=== PATIENT | female | born 1990 | race African-American/Black ===

== ENCOUNTER 2017-07-07 22:15 | Emergency (ER) | payer SELFPAY ==
[2017-07-07 23:31] LABS: ABSOLUTE BASOPHILS # (AUTO) 0.2 10^3/uL (0.0-0.2); ABSOLUTE EOSINOPHILS # (AUTO) 0.1 10^3/uL (0.0-0.6); ABSOLUTE LYMPHOCYTES (AUTO) 4.2 10^3/uL (0.5-4.7); ABSOLUTE MONOCYTES (AUTO) 0.6 10^3/uL (0.1-1.4); ABSOLUTE NEUT (AUTO) 6.7 10^3/uL (1.7-8.2); BASOPHILS % (AUTO) 1.4 % (0-2); EOSINOPHILS % (AUTO) 0.9 % (0-6); HEMATOCRIT 36.5 % (36.0-47.0); HEMOGLOBIN 12.4 g/dL (12.0-15.5); HGB HCT DIFFERENCE 0.7; LYMPHOCYTES % (AUTO) 35.8 % (13-45); MEAN CORPUSCULAR HEMOGLOBIN 30.3 pg (27.0-33.4); MEAN CORPUSCULAR HGB CONC 34.1 g/dL (32.0-36.0); MEAN CORPUSCULAR VOLUME 89 fl (80-97); MONOCYTES % (AUTO) 5.2 % (3-13); RED BLOOD COUNT 4.11 10^6/uL (3.72-5.28); RED CELL DISTRIBUTION WIDTH 13.4 % (11.5-14.0); SEGMENTED NEUTROPHILS % (AUTO) 56.7 % (42-78); WHITE BLOOD COUNT 11.8 10^3/uL (4.0-10.5)
[2017-07-07] MEDS ORDERED: ACETAMINOPHEN 325 MG TABLET PO ONE (23:33)
[2017-07-07 23:52] LABS: APPEARANCE,URINE TURBID; BILIRUBIN,URINE NEGATIVE (NEGATIVE); GLUCOSE, URINE 50 mg/dL (NEGATIVE); KETONES,URINE 20 mg/dL (NEGATIVE); LEUKOCYTE ESTERASE,URINE NEGATIVE (NEGATIVE); NITRITE,URINE POSITIVE (NEGATIVE); PROTEIN,URINE >=500 mg/dL (NEGATIVE); URINE SPECIFIC GRAVITY 1.032; UROBILINOGEN,URINE NEGATIVE mg/dL (<2.0)
--- NOTE | 2017-07-08 00:47 | ER Document Report ---
ED GI/ - General Mode of Arrival: Ambulatory Information source: Patient TRAVEL OUTSIDE OF THE [place] IN LAST 30 DAYS: No - HPI Patient complains to provider of: , Vaginal bleeding Onset: Other - Refer to HPI notes (06/29/2017) Similar symptoms previously: Yes Recently seen / treated by doctor: No <ELEUTERIO WRAY - Last Filed: 07/08/17 00:57> <KARLA MEREDITH - Last Filed: 07/08/17 03:55> - General Chief Complaint: Vag Bleeding, +preg <12wks Stated Complaint: VAGINAL BLEEDING Time Seen by Provider: 07/08/17 00:41 - HPI Notes: Patient is a 26 year old female presenting to the emergency department for vaginal bleeding. Patient states her bleeding started on 06/29/2017. Patient's bleeding has gotten heavier and she is now passing clots with large pieces. Patient states on 06/29/2017 she took a test that was positive. Patient states her last normal menstrual period was in April. Patient is having lots of associated cramping. Patient is going through 1 pad every 30-60 minutes and passing clots when she uses the restroom or bares down. Patient does not have any known drug allergies. PCP is Dr. Alvarado at [facility]. (ELEUTERIO WRAY) - Related Data Allergies/Adverse Reactions: No Known Allergies Allergy (Verified 07/07/17 22:50) Past Medical History - General Information source: Patient - Social History Smoking Status: Current Every Day Smoker Cigarette use (# per day): Yes - 1/3 ppd Chew tobacco use (# tins/day): No Frequency of alcohol use: None Drug Abuse: None Family History: None Patient has suicidal ideation: No Patient has homicidal ideation: No Pulmonary Medical History: Reports: Hx Asthma Surgical Hx: Negative - Immunizations Immunizations up to date: Yes Hx Diphtheria, Pertussis, Tetanus Vaccination: Yes - received 2010 Hx Pneumococcal Vaccination: 10/05/12 <ELEUTERIO WRAY - Last Filed: 07/08/17 00:57> Review of Systems - Review of Systems Constitutional: No symptoms reported EENT: No symptoms reported Cardiovascular: No symptoms reported Respiratory: No symptoms reported Gastrointestinal: See HPI, Abdominal pain - cramping Genitourinary: No symptoms reported Female Genitourinary: See HPI, , Vaginal bleeding Musculoskeletal: No symptoms reported Skin: No symptoms reported Hematologic/Lymphatic: No symptoms reported Neurological/Psychological: No symptoms reported -: Yes All other systems reviewed and negative <ELEUTERIO WRAY - Last Filed: 07/08/17 00:57> Physical Exam - Vital signs Interpretation: Normal <ELEUTERIO WRAY - Last Filed: 07/08/17 00:57> <MASOUDKARLA - Last Filed: 07/08/17 03:55> - Vital signs Vitals: Temp Pulse Resp BP Pulse Ox 99.2 F 84 20 123/68 100 07/07/17 22:53 07/07/17 22:53 07/07/17 22:53 07/07/17 22:53 07/07/17 22:53 - Notes Notes: GENERAL: Alert, interacts well. No acute distress. HEAD: Normocephalic, atraumatic. EYES: Appear normal. Pupils equal, round, and reactive to light. ENT: Moist mucus membranes, tongue midline. NECK: Full range of motion. Supple. Trachea midline. LUNGS: Clear to auscultation bilaterally, no wheezes, rales, or rhonchi. No respiratory distress. HEART: Regular rate and rhythm. No murmurs, gallops, or rubs. ABDOMEN: Soft, non-tender. Non-distended. Normal bowel sounds. EXTREMITIES: Moves all 4 extremities spontaneously. Normal strength. No edema. NEUROLOGICAL: Alert and oriented x3. Normal speech. No focal neurological deficits. GCS 15. PSYCH: Normal affect, normal mood. SKIN: Warm, dry, normal turgor. No rashes or lesions noted. (ELEUTERIO WRAY) Course - Laboratory Result Diagrams: 07/07/17 23:10 <ELEUTERIO WRAY - Last Filed: 07/08/17 00:57> - Laboratory Result Diagrams: 07/07/17 23:10 - Diagnostic Test Radiology reviewed: Reports reviewed - Ultrasound shows a possible gestational sac measuring 6 weeks 3 days. There is no ectopic seen, but cannot be excluded , there is no heartbeat. <KARLA MEREDITH - Last Filed: 07/08/17 03:55> - Vital Signs Vital signs: Temp Pulse Resp BP Pulse Ox 99.2 F 84 20 110/52 L 100 07/07/17 22:53 07/07/17 22:53 07/07/17 22:53 07/08/17 02:00 07/08/17 02:01 - Laboratory Laboratory results interpreted by me: 07/07/17 07/07/17 07/07/17 23:10 23:10 23:10 WBC 11.8 H Beta HCG, Quant 4938.50 H Urine Protein >=500 H Urine Glucose (UA) 50 H Urine Ketones 20 H Urine Blood LARGE H Urine Nitrite POSITIVE H Discharge <ELEUTERIO WRAY - Last Filed: 07/08/17 00:57> <KARLA MEREDITH - Last Filed: 07/08/17 03:55> - Discharge Clinical Impression: Threatened miscarriage in early Condition: Stable Disposition: HOME, SELF-CARE Additional Instructions: Bleeding During Early You have been evaluated for passing blood while . While we take this symptom very seriously, most women with your degree of bleeding will go on to have a perfectly normal baby. (A miscarriage occurs when the fetus is abnormal. There is no medicine or treatment to prevent it.) A more serious cause of bleeding is tubal . An ultrasound can show whether the is in the uterus or in the tube. Sometimes in early , no fetus is seen. In this case, careful follow-up, including repeat blood tests and repeat ultrasound, is necessary. You should rest in bed until the symptoms have resolved. Do not douche or have sex for at least a week, or until OK'd by the doctor. Don't use tampons. Call the doctor or return for re-examination if there is an increase in bleeding or cramping, extreme weakness, fainting, new abdominal pain, fever, or passage of tissue. //////////////////////////////////////////////////////////////////////////////// //////////////////////////////////////////////////////////////////////////////// /////////////// Your ultrasound suggests a gestational sac measuring 6 weeks 3 days. No cardiac activity is seen. At this time it is not possible to tell if the miscarriages occurring, if there is a viable , or if there might possibly be an ectopic . You should follow[facility] with [facility] on Friday or Friday for reevaluation and to repeat your hormone level. RETURN TO THE EMERGENCY ROOM IF ANY NEW OR WORSENING SYMPTOMS. Referrals: ROXANNE ALVARADO MD [Primary Care Provider] - Follow up tomorrow Scribe Attestation: 07/08/17 02:04 I personally performed the services described in the documentation, reviewed and edited the documentation which was dictated to the scribe in my presence, and it accurately records my words and actions. (KARLA MEREDITH) Scribe Documentation - Scribe Written by Roxanne:: Roxanne Daigle 07/08/2017 00:44 acting as scribe for :: Masoud <ELEUTERIO WRAY - Last Filed: 07/08/17 00:57>
--- NOTE | 2017-07-08 03:05 | RADIOLOGY REPORT (SQ) ---
EXAM DESCRIPTION: U/S OB TRANSVAGINAL W/O DOP COMPLETED DATE/TIME: 07/08/2017 2:36 am REASON FOR STUDY: Pelvic cramps with bleeding COMPARISON: 3 TECHNIQUE: Transvaginal static and realtime grayscale images acquired of the pelvis. Additional esme cted spectral and color Doppler images recorded. All images stored on PACs. [facility] LIMITATIONS: None. FINDINGS: UTERUS: No definite visualized intrauterine . There is a intrauterine irregular fluid collection ; if viable, mean sac diameter is 1.6 cm correspond with a gestational age of 6 week s and 3 days an ARCHANA of 02/28/2018. No pole is identified. No yolk sac is identified. There is a questionable decidual reaction. RIGHT ADNEXA: Normal ovary with normal vascular flow. No adnexal free fluid. No adnexal masses. 3.4 cm. LEFT ADNEXA: Normal ovary with normal vascular flow. No adnexal free fluid. No adnexal masses. 3.2 cm. FREE FLUID: None. OTHER: No other significant finding. IMPRESSION: NO VISUALIZED INTRA- OR EXTRAUTERINE . bHCG LEVEL TOO LOW TO EXPECT VISUALIZATION OF . ECTOPIC CANNOT BE EXCLUDED. FOLLOW-UP ULTRASOUND AND SERIAL BHCG LEVELS STRONGLY RECOMMENDED TO ACCURATELY ASSESS STATU S. COMMENT: HCG levels in early chart *3 weeks: 5-50 mIU/ml *4 weeks: 5-426 mIU/ml *5 weeks: 18-7,340 mIU/ml *6 weeks: 1,080-56,500 mIU/ml *7-8 weeks: 7,560-229,000 mIU/ml *9-12 weeks: 25,700- 288,000 mIU/ml *13-16 weeks: 13,300-254,000 mIU/ml *17-24 weeks: 4,060-165,400 mIU/ml *25-40 weeks: 3,640-117,000 mIU/ml TECHNICAL DOCUMENTATION: JOB ID: [id number]- All Rights Reserved
[2017-07-08 04:00] VITALS: BP 146/78
== END 2017-07-08 03:59 | disposition home or self-care (01) ==
LOC: ER 22:15
DX: O20.0 Threatened abortion (principal); Z3A.01 Less than 8 weeks gestation of pregnancy; R10.9 Unspecified abdominal pain; F17.210 Nicotine dependence, cigarettes, uncomplicated
CPT/HCPCS: 36415; 76817; 81001; 84702; 85025; 86900; 86901; 87086; 99284

== ENCOUNTER 2018-04-10 21:42 | Emergency (ER) | payer SELFPAY ==
--- NOTE | 2018-04-10 23:07 | RADIOLOGY REPORT (SQ) ---
Chest and left RIBS total three view on 04/10/2018 CLINICAL INDICATION: Left rib pain after fall COMPARISON: None FINDINGS: The lungs are clear. There is no pneumothorax or pleural effusion. Cardiac, hilar and mediastinal contours are within normal limits. Pulmonary vascularity is within normal limits. No acute left rib fracture is noted. IMPRESSION: No active disease and no acute left rib fracture.
--- NOTE | 2018-04-11 00:47 | ER Document Report ---
HPI - HPI Pain Level: 4 Notes: Patient is a 27-year-old female no significant past medical history who presents to the ED complaining of left flank pain status post injury about 14 hours ago. Patient states that she tripped and hit her left flank off of the banister of the stairs. Patient states that since then she has had pain. The pain is described as a sharp pain and it does not radiate. Patient states that movement and pushing in the area makes it worse. She has not noticed any obvious bruising. She is still eating and drinking without difficulties. She is urinating normally and having normal bowel movements. Denies any drug allergies. Denies any IV drug use. She is not on any blood thinners. No loss of consciousness. Denies any headache, fever, head injury, neck pain, URI, sore throat, chest pain, palpitations, syncope, cough, shortness of breath, wheeze, dyspnea, nausea/vomiting/diarrhea, urinary retention, dysuria, hematuria , loss of control of bowel or bladder, numbness/tingling, saddle anesthesia, muscle paralysis/weakness, or rash. - ROS Systems Reviewed and Negative: Yes All other systems reviewed and negative - REPRODUCTIVE LMP: 03-23-18 Reproductive: REPORTS: : Past Medical History - Social History Smoking Status: Unknown if Ever Smoked Family History: Reviewed & Not Pertinent Pulmonary Medical History: Reports: Hx Asthma Renal/ Medical History: Denies: Hx Peritoneal Dialysis - Immunizations Immunizations up to date: Yes Hx Diphtheria, Pertussis, Tetanus Vaccination: Yes - received 2010 Hx Pneumococcal Vaccination: 10/05/12 Vertical Provider Document - CONSTITUTIONAL Agree With Documented VS: Yes Notes: PHYSICAL EXAMINATION: accompanied by female nurse GENERAL: Well-appearing, well-nourished and in no acute distress. A&Ox4. Answers questions appropriately. Chest: no ecchymosis. No flail chest. equal rise/fall. Non-tender LUNGS: Breath sounds clear to auscultation bilaterally and equal. No wheezes rales or rhonchi. HEART: Regular rate and rhythm without murmurs, rubs, gallops. ABDOMEN: Soft, nondistended abdomen. No guarding, no rebound. No masses appreciated. Normal bowel sounds present. No CVA tenderness bilaterally. no ecchymosis. + mild tenderness to the left flank. Musculoskeletal: Ext b/l: FROM to passive/active. Strength 5+/5. No deficits noted. No bony tenderness of extremities. Back: FROM to passive/active. Strength 5+/5. No vertebral point tenderness, stepoffs, or deformities. No other ecchymosis. SLR negative b/l. + tenderness to the Left L-paraspinal muscle with mild spasm. No foot drop. No SI jt tenderness. + tenderness to the left lower lateral ribs. Extremities: No cyanosis, clubbing, or edema b/l. Peripheral pulses 2+. Capillary refill less than 2 seconds. NEUROLOGICAL: Cranial nerves grossly intact. Normal speech, normal gait. Normal sensory, motor exams. Reflexes 2+ b/l. PSYCH: Normal mood, normal affect. SKIN: Warm, Dry, normal turgor, no rashes or lesions noted. - INFECTION CONTROL TRAVEL OUTSIDE OF THE [place] IN LAST 30 DAYS: No Course - Re-evaluation Re-evalutation: 04/11/18 00:47 Dr. Miner attempted a FAST exam, but could not see well enough due to visual interference. US ordered. XR of rib/chest negative. 04/11/18 01:46 Patient is an afebrile, well-hydrated, 27-year-old female who presents to the ED with left flank pain, suspect contusion based on H&P today. Vitals are acceptable. PE is otherwise unremarkable. Ultrasound was unremarkable for any acute pathology. Ribs/chest x-ray was unremarkable for any acute pathology. Patient has no significant tachycardia, tachypnea, or hypoxia. She is nontoxic- appearing and is tolerating p.o. without any difficulties. No other labs or imaging warranted at this time based on H&P. I will send her home with a prescription for naproxen. Low suspicion for any intra-abdominal bleeding, meningitis, fracture, expanding/ruptured AAA, cauda equina syndrome, epidural mass lesion/abscess, herniated disc causing severe spinal stenosis, or other systemic infection at this time. Patient is aware that her condition can change from initial presentation and that s conservative measures otherwise for symptoms. He needs monitor symptoms closely for any acute changes. Recheck with your PCM in 2-3 days. Consider consult with orthopedics. Return to the ED with any worsening/concerning symptoms otherwise as reviewed discharge. Patient is in agreement. - Vital Signs Vital signs: Temp Pulse Resp BP Pulse Ox 98.6 F 78 16 119/52 L 100 04/10/18 22:39 04/10/18 22:39 04/10/18 22:39 04/10/18 22:39 04/10/18 22:39 Discharge - Discharge Clinical Impression: Left flank pain Low back pain Qualifiers: Chronicity: acute Back pain laterality: left Sciatica presence: without sciatica Qualified Code(s): M54.5 - Low back pain Condition: Stable Disposition: HOME, SELF-CARE Instructions: Low Back Pain ([facility]), Stretching Exercises for the Back ([facility]) Additional Instructions: Rest, Ice, Compression, Elevation Tylenol/ibuprofen as needed Light stretches daily Strength exercises as able Moist heat and massage may help F/u with your PCP in 2-3 days for a recheck Consider consult(s) with Orthopedics/physical therapy for ongoing/worsening symptoms Return to the ED with any worsening symptoms and/or development of fever, headache, chest pain, palpitations, syncope, shortness of breath, trouble breathing, abdominal pain, n/v/d, blood in stool/urine, loss of control of bowel /bladder, urinary retention, muscle weakness/paralysis, saddle anesthesia, numbness/tingling, bruising, or other worsening symptoms that are concerning to you. Prescriptions: Naproxen 500 mg PO BID PRN #30 tablet PRN Reason: Referrals: ROXANNE SCOTT MD [Primary Care Provider] - 04/13/18 [facility] [Provider Group] - Follow up as needed
--- NOTE | 2018-04-11 01:47 | RADIOLOGY REPORT (SQ) ---
EXAM DESCRIPTION: US ABDOMEN DOPPLER LIMITED COMPLETED DATE/TME: 04/11/2018 00:13 CLINICAL HISTORY: 27 years, Female, Left abdominal pain s/p injury COMPARISON: None. TECHNIQUE: Real-time sonographic images were obtained of the left upper abdomen using a curved multi hertz transducer via FINDINGS: Left kidney: The left kidney measures 10.6 cm in length. No solid renal mass, hydronephrosis, or shadowing calculus. Spleen: The spleen measures 7.6 cm in length without sonographic abnormality. No free fluid identified. IMPRESSION: No sonographic abnormality identified in the left upper abdomen. 2010 [employer]- All Rights Reserved
[2018-04-11 02:49] VITALS: BP 125/68
== END 2018-04-11 02:47 | disposition home or self-care (01) ==
LOC: ER 21:42
DX: R10.9 Unspecified abdominal pain (principal); M54.5 Low back pain; W01.198A Fall on same level from slipping, tripping and stumbling with subsequent striking against other object, initial encounter; J45.909 Unspecified asthma, uncomplicated
CPT/HCPCS: 76705; 93976; 99284

== ENCOUNTER → 2019-04-14 | Outpatient (CLI) | payer SELFPAY ==
--- NOTE | 2019-04-14 15:07 | RADIOLOGY REPORT (SQ) ---
EXAM DESCRIPTION: U/S OB 14+ TRNABD 1GES W/O DOP COMPLETED DATE/TIME: 04/14/2019 2:50 pm REASON FOR STUDY: ENCTR FOR SUPERVISION OF OTHER NORMAL , SECOND TRIMESTER (Z34.82) Z34.82 ENCOUNTER FOR SUPRVSN OF NORMAL , SECOND TRI COMPARISON: No previous this TECHNIQUE: Static and Dynamic grayscale imaging performed of gravid uterus using transabdominal appr oach. Additional selected color Doppler and spectral images recorded. All stored on PACS. LIMITATIONS: None. FINDINGS: FETUSES SEEN:1 EGA: 23 weeks 2 days Calculated using BPD,FL,HC,AC documented on images. No clinical dates are avail able ARCHANA: 08/09/2019 EFW: 539 grams PERCENTILE: 99th percentile COLE: 10.6 cm total COLE PLACENTA: Posterior, grade 1 PRESENTATION: Breech ANATOMY: HEART RATE: 145 beats per minute. FOUR CHAMBER HEART: Visualized. THREE VESSEL CORD: Yes. CORD INSERTION: Visualized. KIDNEYS AND BLADDER: Visualized. Appear normal. STOMACH: Visualized. Appears normal. SPINE: Normal as visualized. BRAIN AND LATERAL VENTRICLES: Visualized. Appear normal. OTHER: No other significant finding. MATERNAL ADNEXA: Right ovary 2.7 x 2.7 x 1.7 cm in size. Left ovary not visualized CERVICAL LENGTH: 2.8 cm Closed. OTHER: No other significant finding. IMPRESSION: LIVING INTRAUTERINE . ESTIMATED GESTATIONAL AGE 23 weeks 2 days NO VISUALIZED ANOMALIES. Trimester of : Second trimester - 13 weeks 1 day to 27 weeks 6 days. TECHNICAL DOCUMENTATION: JOB ID: [id number] [employer]- All Rights Reserved Reading location - IP/workstation name: [email or web address]
== END ==
LOC: RAD 13:44
PROVIDERS: ATTEND Midwife
DX: Z34.82 Encounter for supervision of other normal pregnancy, second trimester (principal)
CPT/HCPCS: 76805

== ENCOUNTER 2019-07-05 12:30 | Outpatient (CLI) | payer MEDICAID ==
[2019-07-05 13:33] LABS: APPEARANCE,URINE TURBID; BILIRUBIN,URINE NEGATIVE (NEGATIVE); GLUCOSE, URINE NEGATIVE (NEGATIVE); KETONES,URINE 20 mg/dL (NEGATIVE); LEUKOCYTE ESTERASE,URINE TRACE (NEGATIVE); NITRITE,URINE NEGATIVE (NEGATIVE); PROTEIN,URINE 30 mg/dL (NEGATIVE); URINE SPECIFIC GRAVITY 1.031
[2019-07-05 13:34] LABS: COLOR,URINE AMBER
[2019-07-05 13:55] LABS: URINE AMPHETAMINES SCREEN NEGATIVE; URINE BARBITURATES SCREEN NEGATIVE; URINE BENZODIAZEPINES SCREEN NEGATIVE; URINE COCAINE SCREEN NEGATIVE; URINE METHADONE SCREEN NEGATIVE; URINE PHENCYCLIDINE SCREEN NEGATIVE
[2019-07-05 14:01] LABS: URINE MARIJUANA (THC) SCREEN UNCONFIRMED POSITIVE
== END 2019-07-05 14:07 | disposition home or self-care (01) ==
LOC: LC 12:30
PROVIDERS: ATTEND Obstetrics & Gynecology
PROC: 4A1HXCZ Monitoring of Products of Conception, Cardiac Rate, External Approach (ICD-10-PCS; principal; 2019-07-05)
DX: O47.03 False labor before 37 completed weeks of gestation, third trimester (principal); Z3A.36 36 weeks gestation of pregnancy
CPT/HCPCS: 59025; 80307; 81001; 84112; 87086

== ENCOUNTER 2019-07-26 06:22 | Inpatient (IN) | payer MEDICAID ==
[2019-07-26] MEDS ORDERED: PENICILLIN G POTASSIUM 5,000,000 UNIT in DEXTROSE 5%-WATER 100 ML IV ONE (06:38)
[2019-07-26] MEDS ORDERED: RINGERS SOLUTION,LACTATED 1,000 ML IV PRN (06:38)
[2019-07-26] MEDS ORDERED: PENICILLIN G-K 5 MILLION UNIT VIAL ONE ×2 (07:11→10:49)
[2019-07-26] MEDS ORDERED: OXYTOCIN/NORMAL SALINE 20 UNIT/1,000 ML RTUINJ ONE (07:12)
[2019-07-26] MEDS ORDERED: MISOPROSTOL 0.2 MG TABLET ONE (07:12)
[2019-07-26] MEDS ORDERED: OXYTOCIN 10 UNIT/ML VIAL ONE (07:12)
[2019-07-26] MEDS ORDERED: LIDOCAINE 1% INJ-PF (10 MG/ML) 30 ML SDV ONE (07:12)
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
[2019-07-26 07:53] LABS: ABSOLUTE EOSINOPHILS # (AUTO) 0.1 10^3/uL (0.0-0.6); ABSOLUTE LYMPHOCYTES (AUTO) 2.7 10^3/uL (0.5-4.7); ABSOLUTE MONOCYTES (AUTO) 0.9 10^3/uL (0.1-1.4); ABSOLUTE NEUT (AUTO) 6.6 10^3/uL (1.7-8.2); BASOPHILS % (AUTO) 0.4 % (0-2); EOSINOPHILS % (AUTO) 0.9 % (0-6); HEMATOCRIT 32.9 % (36.0-47.0); HEMOGLOBIN 11.2 g/dL (12.0-15.5); LYMPHOCYTES % (AUTO) 26.2 % (13-45); MEAN CORPUSCULAR HEMOGLOBIN 30.4 pg (27.0-33.4); MEAN CORPUSCULAR VOLUME 89 fl (80-97); MONOCYTES % (AUTO) 8.4 % (3-13); PLATELET COUNT 231 10^3/uL (150-450); RED BLOOD COUNT 3.68 10^6/uL (3.72-5.28); RED CELL DISTRIBUTION WIDTH 12.9 % (11.5-14.0); SEGMENTED NEUTROPHILS % (AUTO) 64.1 % (42-78); TOTAL CELLS COUNTED % (AUTO) 100 %; WHITE BLOOD COUNT 10.4 10^3/uL (4.0-10.5)
[2019-07-26 07:54] LABS: APPEARANCE,URINE SLIGHTLY-CLOUDY; BILIRUBIN,URINE NEGATIVE (NEGATIVE); COLOR,URINE YELLOW; GLUCOSE, URINE NEGATIVE (NEGATIVE); KETONES,URINE NEGATIVE (NEGATIVE); LEUKOCYTE ESTERASE,URINE TRACE (NEGATIVE); NITRITE,URINE NEGATIVE (NEGATIVE); PROTEIN,URINE NEGATIVE (NEGATIVE); URINE SPECIFIC GRAVITY 1.026
[2019-07-26 08:10] LABS: URINE AMPHETAMINES SCREEN NEGATIVE; URINE BARBITURATES SCREEN NEGATIVE; URINE BENZODIAZEPINES SCREEN NEGATIVE; URINE COCAINE SCREEN NEGATIVE; URINE MARIJUANA (THC) SCREEN NEGATIVE; URINE METHADONE SCREEN NEGATIVE; URINE PHENCYCLIDINE SCREEN NEGATIVE
[2019-07-26] MEDS ORDERED: NALBUPHINE HCL INJ 10 MG/1 ML AMPULE ONE (09:28)
[2019-07-26] MEDS ORDERED: NALBUPHINE HCL INJ 10 MG/1 ML AMPULE INJ ONE (09:30)
[2019-07-26] MEDS: PENICILLIN G POTASSIUM 2,500,000 UNIT in DEXTROSE 5%-WATER 50 ML IV SCH ×2 (11:34→19:59)
[2019-07-26] MEDS ORDERED: ACETAMINOPHEN 325 MG TABLET ONE (12:29)
[2019-07-26] MEDS ORDERED: ACETAMINOPHEN 325 MG TABLET PO ONE (12:32)
[2019-07-26] MEDS ORDERED: EPHEDRINE SULFATE INJ 50 MG/1 ML AMPULE ONE (12:53)
[2019-07-26] MEDS ORDERED: BUPIVACAINE HCL 0.25 % INJ/PF (2.5 MG/1 ML) 30 ML VIAL ONE (12:53)
[2019-07-26] MEDS ORDERED: FENTANYL/BUPIVACAINE/NS/PF 300 MCG/150 ML RTUINJ EPI ONE (12:53)
[2019-07-26] MEDS ORDERED: MEASLES,MUMPS&RUBELLA VACC/PF 0.5 ML VIAL SUBCUT PRN (13:51)
[2019-07-26] MEDS ORDERED: DIBUCAINE 1% OINTMENT 56 GM TP PRN (13:51)
[2019-07-26] MEDS ORDERED: BENZOCAINE/MENTHOL AEROSOL SPRAY 56 ML TOP PRN (13:51)
[2019-07-26] MEDS ORDERED: DIPH/PERTUSS(ACELL)/TETANUS VAC/PF 0.5 ML SYR (>=10YO) IM PRN (13:51)
[2019-07-26] MEDS ORDERED: ZOLPIDEM TARTRATE 5 MG TABLET PO PRN (13:51)
[2019-07-26] MEDS ORDERED: OXYTOCIN/NORMAL SALINE 20 UNIT/1,000 ML RTUINJ IV PRN (13:51)
[2019-07-26] MEDS ORDERED: BENZOCAINE/MENTHOL AEROSOL SPRAY 56 ML ONE (16:02)
[2019-07-26] MEDS: ACETAMINOPHEN WITH CODEINE #3 TABLET PO PRN (17:58)
[2019-07-26] MEDS: DOCUSATE SODIUM 100 MG CAPSULE PO SCH (17:58)
[2019-07-26] MEDS: IBUPROFEN 800 MG TABLET PO SCH ×2 (18:56→21:04)
[2019-07-27] MEDS: ACETAMINOPHEN WITH CODEINE #3 TABLET PO PRN ×4 (01:15→20:30)
[2019-07-27] MEDS: IBUPROFEN 800 MG TABLET PO SCH ×3 (05:11→22:13)
[2019-07-27 06:47] LABS: HEMATOCRIT 33.8 % (36.0-47.0); HEMOGLOBIN 11.3 g/dL (12.0-15.5); MEAN CORPUSCULAR HEMOGLOBIN 29.9 pg (27.0-33.4); MEAN CORPUSCULAR HGB CONC 33.3 g/dL (32.0-36.0); MEAN CORPUSCULAR VOLUME 90 fl (80-97); PLATELET COUNT 226 10^3/uL (150-450); RED BLOOD COUNT 3.77 10^6/uL (3.72-5.28); RED CELL DISTRIBUTION WIDTH 13.1 % (11.5-14.0); WHITE BLOOD COUNT 13.3 10^3/uL (4.0-10.5)
[2019-07-27] MEDS: SENNOSIDES/DOCUSATE 8.6-50 MG 1 EACH TABLET PO SCH (09:23)
[2019-07-27] MEDS: FERROUS SULFATE 325 MG TABLET PO SCH (09:23)
[2019-07-27] MEDS: PRENATAL VITAMIN W DHA CAPSULE PO SCH (09:23)
[2019-07-27] MEDS: DOCUSATE SODIUM 100 MG CAPSULE PO SCH ×2 (09:23→17:11)
--- NOTE | 2019-07-27 14:44 | PDOC PROGRESS REPORT ---
Subjective-OB Progress Note for:: 07/27/19 Subjective: reports bleeding slowing, pain controlled with current meds, denies needs Physical Exam (OB) Vital Signs: Temp Pulse Resp BP Pulse Ox 98.0 F 85 12 106/62 100 07/27/19 07:37 07/27/19 07:37 07/27/19 07:37 07/27/19 07:37 07/27/19 07:37 Intake & Output 07/26/19 07/27/19 07/28/19 06:59 06:59 06:59 Intake Total 600 Balance 600 Weight 89.4 kg - Abdomen Description: Soft Hernia Present: No Fundal Description: Firm, Midline Fundal Height: u/u - u/2 - Abdominal Distension: No distension Tenderness: Nontender - Extremities Lower extremities: Christofer's sign - neg Calf: Normal, Nontender Objective-Diagnostic Laboratory: 07/27/19 06:26 07/27/19 06:26 WBC 13.3 H RBC 3.77 Hgb 11.3 L Hct 33.8 L MCV 90 MCH 29.9 MCHC 33.3 RDW 13.1 Plt Count 226 Assessment and Plan(PN) - Assessment and Plan (3) Vaginal delivery Is this a current diagnosis for this admission?: Yes - Time Spent with Patient Time with patient: Less than 15 minutes Medications reviewed and adjusted accordingly: Yes - Disposition Anticipated Discharge: Home Within: within 24 hours
[2019-07-27] MEDS ORDERED: MEDROXYPROGESTERONE ACET INJ 150 MG/1 ML VIAL IM ONE (16:00)
[2019-07-28] MEDS: IBUPROFEN 800 MG TABLET PO SCH ×2 (05:22→13:32)
[2019-07-28] MEDS: ACETAMINOPHEN WITH CODEINE #3 TABLET PO PRN ×2 (07:46→11:57)
[2019-07-28] MEDS: PRENATAL VITAMIN W DHA CAPSULE PO SCH (09:38)
[2019-07-28] MEDS: DOCUSATE SODIUM 100 MG CAPSULE PO SCH (09:38)
[2019-07-28] MEDS: SENNOSIDES/DOCUSATE 8.6-50 MG 1 EACH TABLET PO SCH (09:38)
[2019-07-28] MEDS: FERROUS SULFATE 325 MG TABLET PO SCH (09:38)
--- NOTE | 2019-07-28 14:27 | PDOC DISCHARGE SUMMARY ---
Impression - Admit/DC Date/PCP Admission Date/Primary Care Provider: 07/26/19 06:22 SNEHAL VERMA MD Discharge Date: 07/28/19 - Discharge Diagnosis (1) Asthma Is this a current diagnosis for this admission?: Yes (2) Encounter for induction of labor Is this a current diagnosis for this admission?: Yes (3) Limited care Is this a current diagnosis for this admission?: Yes (4) Smoker Is this a current diagnosis for this admission?: Yes (5) Vaginal delivery Is this a current diagnosis for this admission?: Yes - Additional Information Resuscitation Status: Full Code Discharge Diet: As Tolerated, Regular Discharge Activity: Activity As Tolerated, Balance Activity w/Rest, No Lifting Over 10 Pounds, Pelvic Rest, No tub bath, Walk Frequently Referrals: SNEHAL VERMA MD [Primary Care Provider] - 07/30/19 8:30 am (PLEASE CALL THE OFFICE FOR ANY QUESTIONS OR CONCERN.) Prescriptions: Ibuprofen [Motrin 800 mg Tablet] 800 mg PO Q8HP PRN #30 tablet PRN Reason: Abdominal Cramping Docusate Sodium [Colace 100 mg Capsule] 100 mg PO BID #60 capsule Ferrous Sulfate [Feosol 325 mg Tablet] 325 mg PO BID #60 tablet Home Medications: Pnv,Calcium 72/Iron,Carb/Folic [ Plus Iron Tablet] 1 tab PO DAILY 11/11/13 Docusate Sodium [Colace 100 mg Capsule] 100 mg PO BID #60 capsule 07/28/19 Ferrous Sulfate [Feosol 325 mg Tablet] 325 mg PO BID #60 tablet 07/28/19 Ibuprofen [Motrin 800 mg Tablet] 800 mg PO Q8HP PRN #30 tablet 07/28/19 Results Laboratory Results: WBC 13.3 10^3/uL (4.0-10.5) H 07/27/19 06:26 RBC 3.77 10^6/uL (3.72-5.28) 07/27/19 06:26 Hgb 11.3 g/dL (12.0-15.5) L 07/27/19 06:26 Hct 33.8 % (36.0-47.0) L 07/27/19 06:26 MCV 90 fl (80-97) 07/27/19 06:26 MCH 29.9 pg (27.0-33.4) 07/27/19 06:26 MCHC 33.3 g/dL (32.0-36.0) 07/27/19 06:26 RDW 13.1 % (11.5-14.0) 07/27/19 06:26 Plt Count 226 10^3/uL (150-450) 07/27/19 06:26 Lymph % (Auto) 26.2 % (13-45) 07/26/19 07:23 [place] % (Auto) 8.4 % (3-13) 07/26/19 07:23 Eos % (Auto) 0.9 % (0-6) 07/26/19 07:23 Baso % (Auto) 0.4 % (0-2) 07/26/19 07:23 Absolute Neuts (auto) 6.6 10^3/uL (1.7-8.2) 07/26/19 07:23 Absolute Lymphs (auto) 2.7 10^3/uL (0.5-4.7) 07/26/19 07:23 Absolute Monos (auto) 0.9 10^3/uL (0.1-1.4) 07/26/19 07:23 Absolute Eos (auto) 0.1 10^3/uL (0.0-0.6) 07/26/19 07:23 Absolute Basos (auto) 0.0 10^3/uL (0.0-0.2) 07/26/19 07:23 Seg Neutrophils % 64.1 % (42-78) 07/26/19 07:23 Urine Color YELLOW 07/26/19 06:30 Urine Appearance SLIGHTLY-CLOUDY 07/26/19 06:30 Urine pH 6.0 (5.0-9.0) 07/26/19 06:30 Ur Specific [place] 1.026 07/26/19 06:30 Urine Protein NEGATIVE mg/dL (NEGATIVE) 07/26/19 06:30 Urine Glucose (UA) NEGATIVE mg/dL (NEGATIVE) 07/26/19 06:30 Urine Ketones NEGATIVE mg/dL (NEGATIVE) 07/26/19 06:30 Urine Blood NEGATIVE (NEGATIVE) 07/26/19 06:30 Urine Nitrite NEGATIVE (NEGATIVE) 07/26/19 06:30 Urine Bilirubin NEGATIVE (NEGATIVE) 07/26/19 06:30 Urine Urobilinogen 2.0 mg/dL (<2.0) H 07/26/19 06:30 Ur Leukocyte Esterase TRACE (NEGATIVE) H 07/26/19 06:30 Urine Ascorbic Acid NEGATIVE (NEGATIVE) 07/26/19 06:30 Urine Opiates Screen NEGATIVE 07/26/19 06:30 Urine Methadone Screen NEGATIVE 07/26/19 06:30 Ur Barbiturates Screen NEGATIVE 07/26/19 06:30 Ur Phencyclidine Scrn NEGATIVE 07/26/19 06:30 Ur Amphetamines Screen NEGATIVE 07/26/19 06:30 U Benzodiazepines Scrn NEGATIVE 07/26/19 06:30 Urine Cocaine Screen NEGATIVE 07/26/19 06:30 U Marijuana (THC) Screen NEGATIVE 07/26/19 06:30 RPR NONREACTIVE (NONREACTIVE) 07/26/19 07:23 Blood Type B POSITIVE 07/26/19 07:23 Antibody Screen NEGATIVE 07/26/19 07:23
[2019-07-28 14:41] VITALS: BP 117/56
--- NOTE | 2019-07-28 20:01 | Delivery Summary ---
Del Sum A-C Datetime Report Generated by CPN: 07/28/2019 20:00 DELIVERY PERSONNEL DELIVERY PERSONNEL: [id number] Nurse Paint Roller Covermaker Certified:: Audrey Kauffman CNM Anesthesiologist:: Shubham Mathias MD Labor and Delivery Nurse:: Thi Seymour RNsupervisor public message service Nurse:: Ya Crane RN Research Clerk/COGENERATION OPERATOR: Ann Mitchell, LEAD VULCANIZING OPERATOR MATERNAL INFORMATION Delivery Anesthesia: Epidural Medications After Delivery: Pitocin Drip 20 Units/1000ml NSS Estimated Blood Loss (ml): 150 Provider Comments: of VFI, NC x 1, easily reduced, crying and placed on pts abdoman in stable condition. Cord blood clamped due to gush of blood, cord blood collected. No repair of perineum noted. Placents S/C/I, ff with decreased lochia, QBL 150 ml. Apgars 8.9. Mother and baby left in stable condition. Attending MD is Dr Dawson LABOR SUMMARY EDC: 07/29/2019 00:00 No. Babies in Womb: 1 Labor Anesthesia: Epidural LABOR INFORMATION Reason for Induction- Other: H/O IUFD Onset of Labor: 07/26/2019 07:45 Complete Dilatation: 07/26/2019 13:11 Oxytocin: Induction Group B Beta Strep: positive Antibiotics # of Doses: 2 Antibiotics Time of Last Dose: 113 Name of Antibiotic Given: [place] Steroids Given: None Reason Steroids Not Administered: Not Applicable MEMBRANES Membranes Rupture Method: Artificial Rupture of Membranes: 07/26/2019 10:45 Length of Rupture (hr): 2.87 Amniotic Fluid Color: Clear Amniotic Fluid Amount: Small Amniotic Fluid Odor: Normal STAGES OF LABOR Stage 1 hr: 5 Stage 1 min: 26 Stage 2 hr: 0 Stage 2 min: 26 Stage 3 hr: 0 Stage 3 min: 2 Total Time in Labor hr: 5 Total Time in Labor min: 54 VAGINAL DELIVERY Episiotomy: None Laceration #1: None Laceration Extension #1: N/A Laceration Repair: No BABY A INFORMATION Delivery Date/Time: 07/26/2019 13:37 Method of Delivery: Vaginal Born in Route : No Forceps: N/A Vacuum Extraction: N/A Shoulder Dystocia : No PRESENTATION/POSITION BABY A Presentation: Cephalic Cephalic Presentation: Vertex Vertex Position: Left Occipital Anterior PLACENTA INFORMATION BABY A Placenta Delivery Time : 07/26/2019 13:39 Placenta Method of Delivery: Spontaneous Placenta Status: Delivered SCORES BABY A Heart Rate 1 min: >100 bpm Resp Effort 1 min: Slow, Irregular Reflex Irritability 1 min: Cough or Sneeze or Pulls Away Muscle Tone 1 min: Active Motion Color 1 min: Body [place], Extremities Blue SCORE 1 MIN: 8 Heart Rate 5 min: >100 bpm Resp Effort 5 min: Good Cry Reflex Irritability 5 min: Cough or Sneeze or Pulls Away Muscle Tone 5 min: Active Motion Color 5 min: Body [place], Extremities Blue SCORE 5 MIN: 9 INFANT INFORMATION BABY A Gestational Age at Delivery: 39.4 Gestational Status: Full Term- 39- 40.6 Weeks Outcome : Liveborn Condition : Stable Sex: Female IDENTIFICATION BABY A Verification Date/Time: 07/26/2019 14:18 ID Band Number: [id number] Mother's Name Verified: Yes RN Verifying Infant: D Bellavance RN WEIGHT/LENGTH BABY A Infant Birthweight (gm): 3116 Infant Weight (lb): 6 Weight (oz): 14 Infant Length (in): 19.00 Length (cm): 48.26 CORD INFORMATION BABY A Suction: Mouth ASSESSMENT BABY A Skin to Skin: No SIGNATURES Assignment: Bi Dawson MD Signature: with User ID: [id number] : with User ID: [id number]
== END 2019-07-28 17:30 | disposition home or self-care (01) | DRG 807 ==
LOC: EEVIPCON 06:22 → LR 06:22 → 2S 16:18
PROVIDERS: ADMIT Obstetrics & Gynecology; ATTEND Obstetrics & Gynecology
PROC: 10E0XZZ Delivery of Products of Conception, External Approach (ICD-10-PCS; principal; 2019-07-26)
PROC: 3E033VJ Introduction of Other Hormone into Peripheral Vein, Percutaneous Approach (ICD-10-PCS; 2019-07-26)
PROC: 10907ZC Drainage of Amniotic Fluid, Therapeutic from Products of Conception, Via Natural or Artificial Opening (ICD-10-PCS; 2019-07-26)
DX: O99.824 Streptococcus B carrier state complicating childbirth (principal); Z37.0 Single live birth; O99.344 Other mental disorders complicating childbirth; J45.20 Mild intermittent asthma, uncomplicated; O99.334 Smoking (tobacco) complicating childbirth; F32.9 Major depressive disorder, single episode, unspecified; O69.81X0 Labor and delivery complicated by cord around neck, without compression, not applicable or unspecified; Z3A.39 39 weeks gestation of pregnancy
CPT/HCPCS: 36415; 80307; 81005; 85025; 85027; 86592; 86850; 86900; 86901; J2300; J2540; J2590; J3010; J3490; J7060